=== PATIENT | female | born 1945 | race Caucasian/White ===

== ENCOUNTER 2018-02-20 14:27 | Outpatient (CLI) | payer MEDICARE | END 2018-02-20 14:28 | disposition home or self-care (01) | LOC: BICMAMMO 14:27 | PROVIDERS: ATTEND Obstetrics & Gynecology | DX: Z12.31 Encounter for screening mammogram for malignant neoplasm of breast (principal) | CPT/HCPCS: 77063; 77067 ==

== ENCOUNTER 2019-02-22 15:05 | Outpatient (CLI) | payer MEDICARE ==
--- NOTE | 2019-02-22 15:42 | MMO ---
Bilateral MAMMO Bilat Screen [facility]. CLINICAL HISTORY: Patient is 73 years old and is seen for screening. The patient has no family history of breast cancer. The patient has no personal history of cancer. VIEWS: The views performed were: bilateral craniocaudal with tomosynthesis and bilateral mediolateral oblique with tomosynthesis. FILMS COMPARED: The present examination has been compared to a prior imaging study performed at [facility] on 02/20/2018. MAMMOGRAM FINDINGS: The breasts are heterogeneously dense, which could obscure a lesion on mammography. There are stable benign appearing calcifications seen in both breasts. There are no suspicious masses, suspicious calcifications, or new areas of architectural distortion. IMPRESSION: THERE IS NO MAMMOGRAPHIC EVIDENCE OF MALIGNANCY. A ROUTINE FOLLOW-UP MAMMOGRAM IN 1 YEAR IS RECOMMENDED. THE RESULTS OF THIS EXAM WERE SENT TO THE PATIENT. ACR BI-RADS Category 2 - Benign finding MAMMOGRAPHY NOTE: 1. A negative mammogram report should not delay a biopsy if a dominant of clinically suspicious mass is present. 2. Approximately 10% to 15% of breast cancers are not detected by mammography. 3. Adenosis and dense breasts may obscure an underlying neoplasm. Reported by: BENJAMIN CHILDS MD Electonically Signed: [id number]
== END 2019-02-22 15:06 | disposition home or self-care (01) ==
LOC: BICMAMMO 15:05
PROVIDERS: ATTEND Obstetrics & Gynecology
DX: Z12.31 Encounter for screening mammogram for malignant neoplasm of breast (principal)
CPT/HCPCS: 77063; 77067

== ENCOUNTER 2019-02-27 13:46 | Outpatient (CLI) | payer MEDICARE ==
--- NOTE | 2019-02-27 14:42 | BD ---
BONE DENSITOMETRY: Date: 02/27/19 HISTORY: Postmenopausal screening. FINDINGS: Lumbar Spine: BMD (g/cm2) L1 0.849 T-Score: -1.3 L2 0.915 T-Score: -1.0 L3 0.887 T-Score: -1.8 L4 0.771 T-Score: -2.6 Total 0.852 T-Score: -1.8 Total lumbar spine density 02/08/17: 0.835 Left Femoral Neck: 0.634 T-Score: -1.9 Total Femur: 0.708 T-Score: -1.9 Total femur density 02/08/17: 0.713 IMPRESSION: Bone mineral density of the lumbar spine and femoral neck both indicate osteopenia. POS: OFF
== END 2019-02-27 13:47 | disposition home or self-care (01) ==
LOC: BICMAMMO 13:46
PROVIDERS: ATTEND Obstetrics & Gynecology
DX: M81.0 Age-related osteoporosis without current pathological fracture (principal); M85.89 Other specified disorders of bone density and structure, multiple sites
CPT/HCPCS: 77080

== ENCOUNTER 2020-11-17 15:30 | Outpatient (CLI) | payer MEDICARE | END 2020-11-17 15:31 | LOC: CTENTCT 15:30 | PROVIDERS: ATTEND Specialist | DX: J32.9 Chronic sinusitis, unspecified (principal) | CPT/HCPCS: 70486 ==

== ENCOUNTER 2023-01-20 14:40 | Emergency (ER) | payer MEDICARE ==
[~2023-01-20 14:40] MED LIST: Iopamidol-370 76% 500 ML MDV (1 ML CHARGE) ONE
[2023-01-20] MEDS ORDERED: Nitroglycerin 0.4 MG TAB 1 EACH ONE (15:11)
[2023-01-20 15:17] LABS: #Basophils 0.1 thou/uL (0.0-0.2); #Eosinphils 0.2 thou/uL (0.0-0.7); #Monocytes 0.5 thou/uL (0.11-0.59); #Neutrophils 2.6 thou/uL (1.40-6.50); %Basophils 1.2 % (0.0-1.0); %Lymphocytes 39.4 % (21.0-51.0); %Monocytes 9.1 % (0.0-10.0); %Neutrophils 46.1 % (42.0-75.0); Hematocrit 39.6 % (36.0-47.0); Hemoglobin 13.2 g/dL (12.0-16.0); Mean Corpuscular HGB CONC 33.3 g/dL (32.0-36.0); Mean Corpuscular Hemoglobin 32.8 pg (27.0-31.0); Mean Corpuscular Volume 98.3 fl (78.0-98.0); Platelet Count 304 10x3/uL (130-400); RBC Distribution Width 11.9 % (11.5-14.5); Red Blood Cell (RBC) Count 4.03 mill/uL (4.20-5.40); White Blood Cell (WBC) Count 5.7 10x3/uL (4.8-10.8)
[2023-01-20 15:33] LABS: ALT (SGPT) 21 U/L (8-55); AST (SGOT) 25 U/L (5-34); Albumin 4.5 g/dL (3.4-4.8); Alkaline Phosphatase 69 U/L (40-110); Anion Gap 12 mmol/L (10-20); BUN (Urea Nitrogen) 16 mg/dL (9.8-20.1); Bilirubin, Total 0.3 mg/dL (0.2-1.2); Calc. Creatinine Clearance 0 mL/min (70-130); Calcium 9.9 mg/dL (7.8-10.44); Carbon Dioxide 30 mmol/L (23-31); Chloride 102 mmol/L (98-107); Estimated GFR 75; Globulin 3.1 g/dL (2.4-3.5); Glucose 131 mg/dL (83-110); Potassium 3.8 mmol/L (3.5-5.1); Protein, Total 7.6 g/dL (5.8-8.1); Sodium 140 mmol/L (136-145); Troponin I Less than 0.010 ng/mL (< 0.028)
[2023-01-20 19:12] LABS: Troponin I Less than 0.010 ng/mL (< 0.028)
== END 2023-01-20 19:45 | disposition home or self-care (01) ==
LOC: ERS 14:40
DX: R07.9 Chest pain, unspecified (principal); E03.9 Hypothyroidism, unspecified; K21.9 Gastro-esophageal reflux disease without esophagitis
CPT/HCPCS: 36415; 71275; 80053; 83880; 84484; 85025; 85379; 93005; Q9967

== ENCOUNTER 2023-12-10 12:25 | Outpatient (CLI) | payer MEDICARE | END 2023-12-10 12:26 | disposition home or self-care (01) | LOC: SCSMRI 12:25 | PROVIDERS: ATTEND Family Medicine Sports Medicine | DX: M70.62 Trochanteric bursitis, left hip (principal); S73.192A Other sprain of left hip, initial encounter ==

== ENCOUNTER 2024-05-07 11:03 | Outpatient (CLI) | payer MEDICARE | END 2024-05-07 11:04 | disposition home or self-care (01) | LOC: SCSMRI 11:03 | PROVIDERS: ATTEND Family Medicine Sports Medicine | DX: M51.16 Intervertebral disc disorders with radiculopathy, lumbar region (principal); M48.061 Spinal stenosis, lumbar region without neurogenic claudication; M47.26 Other spondylosis with radiculopathy, lumbar region; M51.379 Other intervertebral disc degeneration, lumbosacral region without mention of lumbar back pain or lower extremity pain | CPT/HCPCS: 72148 ==